=== PATIENT | male | born 1980 | race Caucasian/White ===

== ENCOUNTER 2023-12-12 14:27 | Inpatient (IN) | payer OTHER, SELFPAY ==
[2023-12-12 14:36] VITALS: BP 128/76; PULSE 76; O2SAT 100
[2023-12-12 14:41] VITALS: BP 128/78; PULSE 72; RESP 16; TEMP 36.6; O2SAT 100; BMI 31.6
[2023-12-12 14:55] LABS: Add Manual Diff / Slide Review NO; Basophils Absolute Auto 0 /uL (0-100); Basophils Percent Auto 0.4 % (0-2); Eosinophils Absolute Auto 0 /uL (0-450); Eosinophils Percent Auto 0.1 % (2-4); Hematocrit 40.7 % (41-53); Hemoglobin 14.3 g/dL (13.5-17.5); Lymphocytes Absolute Auto 1300 /uL (1100-4500); Lymphocytes Percent Auto 13.7 % (25-40); Mean Corpuscular HGB Conc 35.2 % (30-36); Mean Corpuscular Hemoglobin 30.9 PG (26-34); Mean Corpuscular Volume 87.7 fL (80-100); Monocytes Absolute Auto 600 /uL (0-900); Neutrophils Absolute Auto 7400 /uL (1500-7000); Neutrophils Percent Auto 79.8 % (50-75); Platelet Count 290 X10^3/uL (150-400); Red Blood Cell Count 4.64 X10^6/uL (4.5-5.9); Red Cell Distribution Width 13.3 % (11.6-14.8); White Blood Cell Count 9.2 X10^3/uL (4.5-11.0)
--- NOTE | 2023-12-12 14:57 | ED.ABDPAIN ---
HPI - Abdominal Pain <Eddie Loyola PA-C - Last Filed: 12/14/23 15:25> General Chief Complaint: Abdominal Pain Stated Complaint: Gallbladder sent from [facility] Time Seen by Provider: 12/12/23 14:41 History of Present Illness HPI narrative: This is a 43-year-old male presents emergency department due to intermittent epigastric pain for the last week and a half. States it is a 9/10. Had 1st episode about a week and a half ago which improved on its own. He was another episode today causing him to go to urgent care where they did EKG but told him to come to the emergency department to rule out any gallbladder issues. States that at 910 somewhat sharp pain. History of appendectomy. Eating does not worsen or improve the pain. Does not smoke. No extensive ibuprofen use. Denies any blood in the stool or any changes in bowel habits. Has some nausea but denies any vomiting. Related Data Previous Rx's Medication Instructions Recorded acetaminophen 325 mg capsule 650 mg (2 x 325 mg) PO QID PRN 12/15/23 (Tylenol) pain #60 caps ibuprofen 200 mg tablet 400 mg (2 x 200 mg) PO Q6H #60 tabs 12/15/23 levofloxacin 500 mg tablet 500 mg PO DAILY #5 tabs 12/15/23 Allergies Allergy/AdvReac Type Severity Reaction Status Date / Time No Known Drug Allergies Allergy Verified 12/12/23 18:01 Review of Systems <Eddie Loyola PA-C - Last Filed: 12/14/23 15:25> Review of Systems Narrative: GENERAL: Denies chills, fatigue, malaise, fever, sweats. HEENT: Denies sinus pain, ear pain, sore throat, difficulty swallowing, dizziness. RESPIRATORY: Denies dyspnea, cough, wheezing, hemoptysis, sputum. CARDIOVASCULAR: Denies chest pain, palpitations, orthopnea, edema, GASTROINTESTINAL: Reports abdominal pain and nausea , denies vomiting, , diarrhea, constipation, melena. : Denies dysuria, frequency, incontinence, hematuria, urinary retention. MUSCULOSKELETAL: denies weakness, joint pain, or bony pain SKIN: Denies rash, skin lesions, or other NEUROLOGIC: Denies weakness, headache, numbness, change in speech, confusion, seizures, incoordination. PSYCHIATRIC: No concerning psychosocial issues. 12 point review of systems is negative except for those stated above Patient History <Eddie Loyola PA-C - Last Filed: 12/14/23 15:25> Social History household members: spouse, family and children Smoking Status: Never smoker alcohol intake: never Exam <Eddie Loyola PA-C - Last Filed: 12/14/23 15:25> Narrative Exam Narrative: GENERAL: Well-developed patient, in mild distress. HEAD: Atraumatic. Normocephalic. EYES: Pupils equal round and reactive. Extraocular motions intact. No scleral icterus. No injection or drainage. ENT: Nose without bleeding, purulent drainage. Throat without erythema, tonsillar hypertrophy or exudate. Airway patent. NECK: Trachea midline. Non tender EXTREMITIES: No edema or joint tenderness. NEURO: AOx3. SKIN: No rash or erythema of visible areas GASTROINTESTINAL: Some guarding noted. Tenderness to palpation to epigastric and RUQ area. Nondistended. BACK: Nontender without deformity or crepitance. No flank tenderness. Initial Vital Signs Initial Vital Signs: Vital Signs Pulse Rate 76 12/12/23 14:36 Blood Pressure 128/76 12/12/23 14:36 Pulse Oximetry 100 12/12/23 14:36 <Brooke Orantes DO - Last Filed: 12/15/23 09:53> Initial Vital Signs Initial Vital Signs: Vital Signs Pulse Rate 76 12/12/23 14:36 Blood Pressure 128/76 12/12/23 14:36 Pulse Oximetry 100 12/12/23 14:36 <Viky Tong MD - Last Filed: 12/13/23 03:04> Initial Vital Signs Initial Vital Signs: Vital Signs Pulse Rate 76 12/12/23 14:36 Blood Pressure 128/76 12/12/23 14:36 Pulse Oximetry 100 12/12/23 14:36 Course <Eddie Loyola PA-C - Last Filed: 12/14/23 15:25> Orders Ordered: ED Orders 12/15/23 04:40 Complete Blood Count AUTO DIFF DAILY Comprehensive Metabolic Panel DAILY 12/16/23 05:00 Complete Blood Count AUTO DIFF DAILY 12/16/23 06:00 Comprehensive Metabolic Panel DAILY Acetaminophen (Acetaminophen 325 Mg Tablet) 650 mg PO Q6H PRN PRN Reason: Fever/Mild Pain (1-3) Last Admin: 12/14/23 00:36 Dose: 650 mg Documented By: Enoxaparin Sodium (Enoxaparin 40 Mg/0.4 Ml Syringe) 40 mg SUBCUT DAILY [facility] Last Admin: 12/15/23 08:15 Dose: Not Given Documented By: Admin: 12/14/23 08:35 Dose: 40 mg Documented By: IVAN Hydromorphone HCl (Hydromorphone 0.5 Mg Inj) 0.5 mg IV Q2H PRN PRN Reason: Pain, Severe (7-10) Last Admin: 12/13/23 02:19 Dose: 0.5 mg Documented By: KAREN Hydromorphone HCl (Hydromorphone 0.5 Mg Inj) 0.5 mg IV Q2H PRN PRN Reason: Pain, Severe (7-10) Sodium Chloride (Normal Saline 0.9%) 1,000 mls @ 125 mls/hr IV CONT [facility] Last Infusion: 12/14/23 08:10 Dose: Infused Documented By: Admin: 12/14/23 00:09 Dose: 125 mls/hr Documented By: Infusion: 12/13/23 23:46 Dose: Infused Documented By: Admin: 12/13/23 15:46 Dose: 125 mls/hr Documented By: Infusion: 12/13/23 15:19 Dose: Infused Documented By: Infusion: 12/13/23 11:45 Dose: 125 mls/hr Documented By: Infusion: 12/13/23 08:51 Dose: 0 mls/hr Documented By: Admin: 12/13/23 04:25 Dose: 125 mls/hr Documented By: Infusion: 12/13/23 04:25 Dose: Infused Documented By: Admin: 12/12/23 20:30 Dose: 125 mls/hr Documented By: [facility] Piperacillin Sod/Tazobactam (Sod 3.375 gm/ Sodium Chloride) 100 mls @ 25 mls/hr IV Q8H [facility] Last Infusion: 12/15/23 08:15 Dose: Infused Documented By: Admin: 12/15/23 03:34 Dose: 25 mls/hr Documented By: Infusion: 12/15/23 00:07 Dose: Infused Documented By: Admin: 12/14/23 20:07 Dose: 25 mls/hr Documented By: Infusion: 12/14/23 16:30 Dose: Infused Documented By: Admin: 12/14/23 12:00 Dose: 25 mls/hr Documented By: Infusion: 12/14/23 07:30 Dose: Infused Documented By: Admin: 12/14/23 03:16 Dose: 25 mls/hr Documented By: Infusion: 12/13/23 23:37 Dose: Infused Documented By: Admin: 12/13/23 19:37 Dose: 25 mls/hr Documented By: Infusion: 12/13/23 15:45 Dose: Infused Documented By: Admin: 12/13/23 11:45 Dose: 25 mls/hr Documented By: Infusion: 12/13/23 08:50 Dose: Infused Documented By: Admin: 12/13/23 03:33 Dose: 25 mls/hr Documented By: Infusion: 12/12/23 23:25 Dose: Infused Documented By: Admin: 12/12/23 19:44 Dose: 25 mls/hr Documented By: DARWIN Ibuprofen (Ibuprofen 600 Mg Tablet) 600 mg PO Q6H PRN PRN Reason: Fever/Mild Pain (1-3) Naloxone HCl (Naloxone 0.4 Mg/Ml Vial) 0.2 mg IV Q2MIN PRN PRN Reason: Opiate Reversal Ondansetron HCl (Ondansetron 4 Mg/2 Ml Inj) 4 mg IV Q4HR PRN PRN Reason: Nausea And Vomiting Last Admin: 12/13/23 02:19 Dose: 4 mg Documented By: KAREN Oxycodone HCl (Oxycodone Ir 5 Mg Tablet) 5 mg PO Q3H PRN PRN Reason: Pain, Moderate (4-6) Oxycodone HCl (Oxycodone Ir 10 Mg Tablet) 10 mg PO Q3H PRN PRN Reason: Pain, Severe (7-10) Discontinued Medications Bupivacaine HCl (Bupivacaine 0.25% (Pf) Vial) 30 ml INJ NOW ONE Stop: 12/13/23 09:41 Last Admin: 12/13/23 09:40 Dose: 30 ml Documented By: BRIT Hydromorphone HCl (Hydromorphone 1 Mg Inj) 0 mg IV Q5MIN PRN PRN Reason: Pain, Mild (1-3) Hydromorphone HCl (Hydromorphone 1 Mg Inj) 0 mg IV Q5MIN PRN PRN Reason: Pain, Moderate (4-6) Hydromorphone HCl (Hydromorphone 1 Mg Inj) 0 mg IV Q5MIN PRN PRN Reason: Pain, Severe (7-10) Piperacillin Sod/Tazobactam (Sod 4.5 gm/ Sodium Chloride) 100 mls @ 200 mls/hr IV NOW ONE Stop: 12/12/23 16:50 Last Infusion: 12/12/23 18:02 Dose: Infused Documented By: MLKevin Admin: 12/12/23 17:36 Dose: 200 mls/hr Documented By: BLESSING Lactated Ringer's (Lactated Ringers) 1,000 mls @ 42 mls/hr IV NOW ONE Stop: 12/14/23 08:58 Last Admin: 12/13/23 11:12 Dose: 42 mls/hr Documented By: Infusion: 12/13/23 11:11 Dose: Infused Documented By: Admin: 12/13/23 09:13 Dose: 42 mls/hr Documented By: JASON Ketorolac Tromethamine (Ketorolac 30 Mg/Ml Vial) 15 mg IV NOW ONE Stop: 12/12/23 17:29 Last Admin: 12/12/23 17:35 Dose: 15 mg Documented By: BLESSING Ondansetron HCl (Ondansetron 4 Mg/2 Ml Inj) 4 mg IV NOW PRN PRN Reason: Nausea And Vomiting Last Admin: 12/12/23 17:35 Dose: 4 mg Documented By: BLESSING Ondansetron HCl (Ondansetron 4 Mg/2 Ml Inj) 4 mg IV NOW PRN PRN Reason: Nausea And Vomiting Oxycodone HCl (Oxycodone Ir 5 Mg Tablet) 5 mg PO PACUNOW PRN PRN Reason: Mild or moderate pain Sodium Chloride (Sodium Chloride 0.9% Flush) 10 ml IV PRN PRN PRN Reason: Flush Last Admin: 12/13/23 02:19 Dose: 10 ml Documented By: [facility] Consultations Consultation #1: [id number]: Discussed case with the polytechnic registrar who reported a sludge filled gallbladder with a thickened wall at 4 mm. Common bile duct is 5.4 mm. Formal report pending. Consultation #2: [id number]: Discussed case with Dr. Constantino, general surgeon, who recommended MRCP for further evaluation to determine need for transfer for possible ERCP. Vital Signs Vital signs: Vital Signs - 8 hr 12/12/23 14:36 12/12/23 14:36 12/12/23 14:41 Temperature 97.8 F Pulse Rate 76 72 Respiratory Rate 16 Blood Pressure 128/76 128/78 Pulse Oximetry 100 100 Oxygen Delivery Method Room Air 12/12/23 18:44 Temperature Pulse Rate 85 Respiratory Rate Blood Pressure 119/72 Pulse Oximetry 97 Oxygen Delivery Method Room Air <Brooke Orantes DO - Last Filed: 12/15/23 09:53> Orders Ordered: ED Orders 12/15/23 04:40 Complete Blood Count AUTO DIFF DAILY Comprehensive Metabolic Panel DAILY 12/16/23 05:00 Complete Blood Count AUTO DIFF DAILY 12/16/23 06:00 Comprehensive Metabolic Panel DAILY Acetaminophen (Acetaminophen 325 Mg Tablet) 650 mg PO Q6H PRN PRN Reason: Fever/Mild Pain (1-3) Last Admin: 12/14/23 00:36 Dose: 650 mg Documented By: Enoxaparin Sodium (Enoxaparin 40 Mg/0.4 Ml Syringe) 40 mg SUBCUT DAILY [facility] Last Admin: 12/15/23 08:15 Dose: Not Given Documented By: Admin: 12/14/23 08:35 Dose: 40 mg Documented By: IVAN Hydromorphone HCl (Hydromorphone 0.5 Mg Inj) 0.5 mg IV Q2H PRN PRN Reason: Pain, Severe (7-10) Last Admin: 12/13/23 02:19 Dose: 0.5 mg Documented By: KAREN Hydromorphone HCl (Hydromorphone 0.5 Mg Inj) 0.5 mg IV Q2H PRN PRN Reason: Pain, Severe (7-10) Sodium Chloride (Normal Saline 0.9%) 1,000 mls @ 125 mls/hr IV CONT [facility] Last Infusion: 12/14/23 08:10 Dose: Infused Documented By: Admin: 12/14/23 00:09 Dose: 125 mls/hr Documented By: Infusion: 12/13/23 23:46 Dose: Infused Documented By: Admin: 12/13/23 15:46 Dose: 125 mls/hr Documented By: Infusion: 12/13/23 15:19 Dose: Infused Documented By: Infusion: 12/13/23 11:45 Dose: 125 mls/hr Documented By: Infusion: 12/13/23 08:51 Dose: 0 mls/hr Documented By: Admin: 12/13/23 04:25 Dose: 125 mls/hr Documented By: Infusion: 12/13/23 04:25 Dose: Infused Documented By: Admin: 12/12/23 20:30 Dose: 125 mls/hr Documented By: KAREN Piperacillin Sod/Tazobactam (Sod 3.375 gm/ Sodium Chloride) 100 mls @ 25 mls/hr IV Q8H [facility] Last Infusion: 12/15/23 08:15 Dose: Infused Documented By: Admin: 12/15/23 03:34 Dose: 25 mls/hr Documented By: Infusion: 12/15/23 00:07 Dose: Infused Documented By: Admin: 12/14/23 20:07 Dose: 25 mls/hr Documented By: Infusion: 12/14/23 16:30 Dose: Infused Documented By: Admin: 12/14/23 12:00 Dose: 25 mls/hr Documented By: Infusion: 12/14/23 07:30 Dose: Infused Documented By: Admin: 12/14/23 03:16 Dose: 25 mls/hr Documented By: Infusion: 12/13/23 23:37 Dose: Infused Documented By: Admin: 12/13/23 19:37 Dose: 25 mls/hr Documented By: Infusion: 12/13/23 15:45 Dose: Infused Documented By: Admin: 12/13/23 11:45 Dose: 25 mls/hr Documented By: Infusion: 12/13/23 08:50 Dose: Infused Documented By: Admin: 12/13/23 03:33 Dose: 25 mls/hr Documented By: Infusion: 12/12/23 23:25 Dose: Infused Documented By: Admin: 12/12/23 19:44 Dose: 25 mls/hr Documented By: DARWIN Ibuprofen (Ibuprofen 600 Mg Tablet) 600 mg PO Q6H PRN PRN Reason: Fever/Mild Pain (1-3) Naloxone HCl (Naloxone 0.4 Mg/Ml Vial) 0.2 mg IV Q2MIN PRN PRN Reason: Opiate Reversal Ondansetron HCl (Ondansetron 4 Mg/2 Ml Inj) 4 mg IV Q4HR PRN PRN Reason: Nausea And Vomiting Last Admin: 12/13/23 02:19 Dose: 4 mg Documented By: KAREN Oxycodone HCl (Oxycodone Ir 5 Mg Tablet) 5 mg PO Q3H PRN PRN Reason: Pain, Moderate (4-6) Oxycodone HCl (Oxycodone Ir 10 Mg Tablet) 10 mg PO Q3H PRN PRN Reason: Pain, Severe (7-10) Discontinued Medications Bupivacaine HCl (Bupivacaine 0.25% (Pf) Vial) 30 ml INJ NOW ONE Stop: 12/13/23 09:41 Last Admin: 12/13/23 09:40 Dose: 30 ml Documented By: BRIT Hydromorphone HCl (Hydromorphone 1 Mg Inj) 0 mg IV Q5MIN PRN PRN Reason: Pain, Mild (1-3) Hydromorphone HCl (Hydromorphone 1 Mg Inj) 0 mg IV Q5MIN PRN PRN Reason: Pain, Moderate (4-6) Hydromorphone HCl (Hydromorphone 1 Mg Inj) 0 mg IV Q5MIN PRN PRN Reason: Pain, Severe (7-10) Piperacillin Sod/Tazobactam (Sod 4.5 gm/ Sodium Chloride) 100 mls @ 200 mls/hr IV NOW ONE Stop: 12/12/23 16:50 Last Infusion: 12/12/23 18:02 Dose: Infused Documented By: Admin: 12/12/23 17:36 Dose: 200 mls/hr Documented By: BLESSING Lactated Ringer's (Lactated Ringers) 1,000 mls @ 42 mls/hr IV NOW ONE Stop: 12/14/23 08:58 Last Admin: 12/13/23 11:12 Dose: 42 mls/hr Documented By: Infusion: 12/13/23 11:11 Dose: Infused Documented By: Admin: 12/13/23 09:13 Dose: 42 mls/hr Documented By: JASON Ketorolac Tromethamine (Ketorolac 30 Mg/Ml Vial) 15 mg IV NOW ONE Stop: 12/12/23 17:29 Last Admin: 12/12/23 17:35 Dose: 15 mg Documented By: BLESSING Ondansetron HCl (Ondansetron 4 Mg/2 Ml Inj) 4 mg IV NOW PRN PRN Reason: Nausea And Vomiting Last Admin: 12/12/23 17:35 Dose: 4 mg Documented By: BLESSING Ondansetron HCl (Ondansetron 4 Mg/2 Ml Inj) 4 mg IV NOW PRN PRN Reason: Nausea And Vomiting Oxycodone HCl (Oxycodone Ir 5 Mg Tablet) 5 mg PO PACUNOW PRN PRN Reason: Mild or moderate pain Sodium Chloride (Sodium Chloride 0.9% Flush) 10 ml IV PRN PRN PRN Reason: Flush Last Admin: 12/13/23 02:19 Dose: 10 ml Documented By: KAREN Vital Signs Vital signs: Vital Signs - 8 hr 12/12/23 14:36 12/12/23 14:36 12/12/23 14:41 Temperature 97.8 F Pulse Rate 76 72 Respiratory Rate 16 Blood Pressure 128/76 128/78 Pulse Oximetry 100 100 Oxygen Delivery Method Room Air 12/12/23 18:44 Temperature Pulse Rate 85 Respiratory Rate Blood Pressure 119/72 Pulse Oximetry 97 Oxygen Delivery Method Room Air <Viky Tong MD - Last Filed: 12/13/23 03:04> Orders Ordered: ED Orders 12/15/23 04:40 Complete Blood Count AUTO DIFF DAILY Comprehensive Metabolic Panel DAILY 12/16/23 05:00 Complete Blood Count AUTO DIFF DAILY 12/16/23 06:00 Comprehensive Metabolic Panel DAILY Acetaminophen (Acetaminophen 325 Mg Tablet) 650 mg PO Q6H PRN PRN Reason: Fever/Mild Pain (1-3) Last Admin: 12/14/23 00:36 Dose: 650 mg Documented By: Enoxaparin Sodium (Enoxaparin 40 Mg/0.4 Ml Syringe) 40 mg SUBCUT DAILY [facility] Last Admin: 12/15/23 08:15 Dose: Not Given Documented By: Admin: 12/14/23 08:35 Dose: 40 mg Documented By: IVAN Hydromorphone HCl (Hydromorphone 0.5 Mg Inj) 0.5 mg IV Q2H PRN PRN Reason: Pain, Severe (7-10) Last Admin: 12/13/23 02:19 Dose: 0.5 mg Documented By: KAREN Hydromorphone HCl (Hydromorphone 0.5 Mg Inj) 0.5 mg IV Q2H PRN PRN Reason: Pain, Severe (7-10) Sodium Chloride (Normal Saline 0.9%) 1,000 mls @ 125 mls/hr IV CONT [facility] Last Infusion: 12/14/23 08:10 Dose: Infused Documented By: Admin: 12/14/23 00:09 Dose: 125 mls/hr Documented By: Infusion: 12/13/23 23:46 Dose: Infused Documented By: Admin: 12/13/23 15:46 Dose: 125 mls/hr Documented By: Infusion: 12/13/23 15:19 Dose: Infused Documented By: Infusion: 12/13/23 11:45 Dose: 125 mls/hr Documented By: Infusion: 12/13/23 08:51 Dose: 0 mls/hr Documented By: Admin: 12/13/23 04:25 Dose: 125 mls/hr Documented By: Infusion: 12/13/23 04:25 Dose: Infused Documented By: Admin: 12/12/23 20:30 Dose: 125 mls/hr Documented By: KAREN Piperacillin Sod/Tazobactam (Sod 3.375 gm/ Sodium Chloride) 100 mls @ 25 mls/hr IV Q8H [facility] Last Infusion: 12/15/23 08:15 Dose: Infused Documented By: Admin: 12/15/23 03:34 Dose: 25 mls/hr Documented By: Infusion: 12/15/23 00:07 Dose: Infused Documented By: Admin: 12/14/23 20:07 Dose: 25 mls/hr Documented By: Infusion: 12/14/23 16:30 Dose: Infused Documented By: Admin: 12/14/23 12:00 Dose: 25 mls/hr Documented By: Infusion: 12/14/23 07:30 Dose: Infused Documented By: Admin: 12/14/23 03:16 Dose: 25 mls/hr Documented By: Infusion: 12/13/23 23:37 Dose: Infused Documented By: Admin: 12/13/23 19:37 Dose: 25 mls/hr Documented By: Infusion: 12/13/23 15:45 Dose: Infused Documented By: Admin: 12/13/23 11:45 Dose: 25 mls/hr Documented By: Infusion: 12/13/23 08:50 Dose: Infused Documented By: Admin: 12/13/23 03:33 Dose: 25 mls/hr Documented By: Infusion: 12/12/23 23:25 Dose: Infused Documented By: Admin: 12/12/23 19:44 Dose: 25 mls/hr Documented By: DARWIN Ibuprofen (Ibuprofen 600 Mg Tablet) 600 mg PO Q6H PRN PRN Reason: Fever/Mild Pain (1-3) Naloxone HCl (Naloxone 0.4 Mg/Ml Vial) 0.2 mg IV Q2MIN PRN PRN Reason: Opiate Reversal Ondansetron HCl (Ondansetron 4 Mg/2 Ml Inj) 4 mg IV Q4HR PRN PRN Reason: Nausea And Vomiting Last Admin: 12/13/23 02:19 Dose: 4 mg Documented By: KAREN Oxycodone HCl (Oxycodone Ir 5 Mg Tablet) 5 mg PO Q3H PRN PRN Reason: Pain, Moderate (4-6) Oxycodone HCl (Oxycodone Ir 10 Mg Tablet) 10 mg PO Q3H PRN PRN Reason: Pain, Severe (7-10) Discontinued Medications Bupivacaine HCl (Bupivacaine 0.25% (Pf) Vial) 30 ml INJ NOW ONE Stop: 12/13/23 09:41 Last Admin: 12/13/23 09:40 Dose: 30 ml Documented By: BRIT Hydromorphone HCl (Hydromorphone 1 Mg Inj) 0 mg IV Q5MIN PRN PRN Reason: Pain, Mild (1-3) Hydromorphone HCl (Hydromorphone 1 Mg Inj) 0 mg IV Q5MIN PRN PRN Reason: Pain, Moderate (4-6) Hydromorphone HCl (Hydromorphone 1 Mg Inj) 0 mg IV Q5MIN PRN PRN Reason: Pain, Severe (7-10) Piperacillin Sod/Tazobactam (Sod 4.5 gm/ Sodium Chloride) 100 mls @ 200 mls/hr IV NOW ONE Stop: 12/12/23 16:50 Last Infusion: 12/12/23 18:02 Dose: Infused Documented By: Admin: 12/12/23 17:36 Dose: 200 mls/hr Documented By: BLESSING Lactated Ringer's (Lactated Ringers) 1,000 mls @ 42 mls/hr IV NOW ONE Stop: 12/14/23 08:58 Last Admin: 12/13/23 11:12 Dose: 42 mls/hr Documented By: Infusion: 12/13/23 11:11 Dose: Infused Documented By: Admin: 12/13/23 09:13 Dose: 42 mls/hr Documented By: JASON Ketorolac Tromethamine (Ketorolac 30 Mg/Ml Vial) 15 mg IV NOW ONE Stop: 12/12/23 17:29 Last Admin: 12/12/23 17:35 Dose: 15 mg Documented By: BLESSING Ondansetron HCl (Ondansetron 4 Mg/2 Ml Inj) 4 mg IV NOW PRN PRN Reason: Nausea And Vomiting Last Admin: 12/12/23 17:35 Dose: 4 mg Documented By: BLESSING Ondansetron HCl (Ondansetron 4 Mg/2 Ml Inj) 4 mg IV NOW PRN PRN Reason: Nausea And Vomiting Oxycodone HCl (Oxycodone Ir 5 Mg Tablet) 5 mg PO PACUNOW PRN PRN Reason: Mild or moderate pain Sodium Chloride (Sodium Chloride 0.9% Flush) 10 ml IV PRN PRN PRN Reason: Flush Last Admin: 12/13/23 02:19 Dose: 10 ml Documented By: KAREN Vital Signs Vital signs: Vital Signs - 8 hr 12/12/23 14:36 12/12/23 14:36 12/12/23 14:41 Temperature 97.8 F Pulse Rate 76 72 Respiratory Rate 16 Blood Pressure 128/76 128/78 Pulse Oximetry 100 100 Oxygen Delivery Method Room Air 12/12/23 18:44 Temperature Pulse Rate 85 Respiratory Rate Blood Pressure 119/72 Pulse Oximetry 97 Oxygen Delivery Method Room Air MDM - Abdominal Pain <Eddie Loyola PA-C - Last Filed: 12/14/23 15:25> Lab Data 12/15/23 04:40 12/15/23 04:40 Labs: Lab Results 12/12/23 12/12/23 12/13/23 Range/Units 14:45 15:53 05:05 WBC 9.2 8.2 (4.5-11.0) X10^3/uL RBC 4.64 4.51 (4.5-5.9) X10^6/uL Hgb 14.3 13.8 (13.5-17.5) g/dL Hct 40.7 L 39.4 L (41-53) % MCV 87.7 87.3 (80-100) fL MCH 30.9 30.5 (26-34) PG MCHC 35.2 35.0 (30-36) % RDW 13.3 13.4 (11.6-14.8) % Plt Count 290 267 (150-400) X10^3/uL Neut % (Auto) 79.8 H 75.4 H (50-75) % Lymph % (Auto) 13.7 L 17.3 L (25-40) % [place] % (Auto) 6.0 6.5 (3-14) % Eos % (Auto) 0.1 L 0.4 L (2-4) % Baso % (Auto) 0.4 0.4 (0-2) % Neut # (Auto) 7400 H 6200 (1380-6434) /uL Lymph # (Auto) 1300 1400 (3653-4919) /uL [place] # (Auto) 600 500 (0-900) /uL Eos # (Auto) 0 0 (0-450) /uL Baso # (Auto) 0 0 (0-100) /uL Sodium 138 139 (137-145) mmol/L Potassium 4.4 4.0 (3.4-5.1) mmol/L Chloride 105 108 H (98-107) mmol/L Carbon Dioxide 27 26 (22-32) mmol/L BUN 11 11 (9-20) mg/dL Creatinine 0.80 0.89 (0.66-1.25) mg/dL Estimated GFR > 60 > 60 (>60) mL/min BUN/Creatinine Ratio 13.8 12.4 (6-22) Glucose 126 H 120 H (70-100) mg/dL Calcium 9.2 8.7 (8.4-10.2) mg/dL Total Bilirubin 2.8 H 4.6 H (0.2-1.3) mg/dL AST 299 H 342 H (17-59) IU/L ALT 302 H 415 H (<50) IU/L Alkaline Phosphatase 170 H 185 H (38-126) U/L Total Protein 8.0 7.1 (6.3-8.2) g/dL Albumin 4.2 3.7 (3.5-5.0) g/dL Globulin 3.8 3.4 (1.7-4.1) g/dL Albumin/Globulin Ratio 1.1 1.1 (1.0-2.8) Lipase 68 (23-300) U/L Urine RBC None seen (0-5/HPF) Urine WBC 0-1/hpf (0-5/HPF) Ur Squamous Epith Cells None seen (0-5/HPF) Amorphous Sediment 2+ Urine Bacteria Occasional (0-1) (None) Urine Mucus 2+ H (Negative) Ur Culture Indicated? Specimen cultured Vol Urine Centrifuged 10ml (spun) Point of care testing: Urine Dip Bedside Urine Glucose Negative Bedside Urine Bilirubin - Negative Bedside Urine Ketone - Negative Urine Specific [place] 1.015 Bedside Urine Occult Blood - Negative Bedside Urine pH 7.5 Bedside Urine Protein +/- 15 Bedside Urine Urobilinogen - Negative Bedside Urine Nitrite - Negative Bedside Urine Leukocytes +/- 15 Esterase MDM Narrative Medical decision making narrative: ED course: This is a 43-year-old male presents to the emergency department due to a week and a half of intermittent epigastric and right upper quadrant abdominal pain. Ultrasound ordered which showed a sludge filled gallbladder with thickened caballero at 4 mm. These findings were discussed with Dr. Constantino of General surgery, who recommended a MRCP for further evaluation. Lab work was notable for Total bili of 2.8, AST of 299, ALT of 302, alk phos of 170. No leukocytosis. Zosyn was ordered and given. NPO since 08:30 last night. Patient was transferred to my attending physician, Dr. Orantes, at end of shift. CC: Epigastric abdominal pain Complicating co-morbidities: History of appendectomy Data collected from: Previous notes Medical records reviewed: Patient has not been to this emergency department the past Differential considered, but not limited to: Acute pancreatitis, cholecystitis, choledocholithiasis, cholangitis, gastroenteritis Exam documented above, pertinent findings include: Tenderness to palpation to the epigastric area as well as right upper quadrant Lab Test results independently reviewed as above. Pertinent findings: As above Imaging studies independently reviewed: Formal ultrasound report pending. MRCP pending. Scores Used: None MIPS Elements: None Consultations: Dr. Constantino of General surgery as noted above Treatments: IV Zosyn Re-evaluations: None Discussion: Discussed plan with the patient was comfortable with the plan Diagnosis: To be determined based on completion of workup Disposition: To be determined based on completion of workup <Brooke Orantes DO - Last Filed: 12/15/23 09:53> Lab Data Labs: Lab Results 12/12/23 12/12/23 12/13/23 Range/Units 14:45 15:53 05:05 WBC 9.2 8.2 (4.5-11.0) X10^3/uL RBC 4.64 4.51 (4.5-5.9) X10^6/uL Hgb 14.3 13.8 (13.5-17.5) g/dL Hct 40.7 L 39.4 L (41-53) % MCV 87.7 87.3 (80-100) fL MCH 30.9 30.5 (26-34) PG MCHC 35.2 35.0 (30-36) % RDW 13.3 13.4 (11.6-14.8) % Plt Count 290 267 (150-400) X10^3/uL Neut % (Auto) 79.8 H 75.4 H (50-75) % Lymph % (Auto) 13.7 L 17.3 L (25-40) % [place] % (Auto) 6.0 6.5 (3-14) % Eos % (Auto) 0.1 L 0.4 L (2-4) % Baso % (Auto) 0.4 0.4 (0-2) % Neut # (Auto) 7400 H 6200 (0845-8358) /uL Lymph # (Auto) 1300 1400 (0291-1264) /uL [place] # (Auto) 600 500 (0-900) /uL Eos # (Auto) 0 0 (0-450) /uL Baso # (Auto) 0 0 (0-100) /uL Sodium 138 139 (137-145) mmol/L Potassium 4.4 4.0 (3.4-5.1) mmol/L Chloride 105 108 H (98-107) mmol/L Carbon Dioxide 27 26 (22-32) mmol/L BUN 11 11 (9-20) mg/dL Creatinine 0.80 0.89 (0.66-1.25) mg/dL Estimated GFR > 60 > 60 (>60) mL/min BUN/Creatinine Ratio 13.8 12.4 (6-22) Glucose 126 H 120 H (70-100) mg/dL Calcium 9.2 8.7 (8.4-10.2) mg/dL Total Bilirubin 2.8 H 4.6 H (0.2-1.3) mg/dL AST 299 H 342 H (17-59) IU/L ALT 302 H 415 H (<50) IU/L Alkaline Phosphatase 170 H 185 H (38-126) U/L Total Protein 8.0 7.1 (6.3-8.2) g/dL Albumin 4.2 3.7 (3.5-5.0) g/dL Globulin 3.8 3.4 (1.7-4.1) g/dL Albumin/Globulin Ratio 1.1 1.1 (1.0-2.8) Lipase 68 (23-300) U/L Urine RBC None seen (0-5/HPF) Urine WBC 0-1/hpf (0-5/HPF) Ur Squamous Epith Cells None seen (0-5/HPF) Amorphous Sediment 2+ Urine Bacteria Occasional (0-1) (None) Urine Mucus 2+ H (Negative) Ur Culture Indicated? Specimen cultured Vol Urine Centrifuged 10ml (spun) Point of care testing: Urine Dip Bedside Urine Glucose Negative Bedside Urine Bilirubin - Negative Bedside Urine Ketone - Negative Urine Specific [place] 1.015 Bedside Urine Occult Blood - Negative Bedside Urine pH 7.5 Bedside Urine Protein +/- 15 Bedside Urine Urobilinogen - Negative Bedside Urine Nitrite - Negative Bedside Urine Leukocytes +/- 15 Esterase MDM Narrative Medical decision making narrative: ED course: This is a 43-year-old male presents to the emergency department due to a week and a half of intermittent epigastric and right upper quadrant abdominal pain. Ultrasound ordered which showed a sludge filled gallbladder with thickened caballero at 4 mm. These findings were discussed with Dr. Constantino of General surgery, who recommended a MRCP for further evaluation. Lab work was notable for Total bili of 2.8, AST of 299, ALT of 302, alk phos of 170. No leukocytosis. Zosyn was ordered and given. NPO since 08:30 last night. Patient was transferred to my attending physician, Dr. Orantes, at end of shift. CC: Epigastric abdominal pain Complicating co-morbidities: History of appendectomy Data collected from: Previous notes Medical records reviewed: Patient has not been to this emergency department the past Differential considered, but not limited to: Acute pancreatitis, cholecystitis, choledocholithiasis, cholangitis, gastroenteritis Exam documented above, pertinent findings include: Tenderness to palpation to the epigastric area as well as right upper quadrant Lab Test results independently reviewed as above. Pertinent findings: As above Imaging studies independently reviewed: Formal ultrasound report pending. MRCP pending. Scores Used: None MIPS Elements: None Consultations: Dr. Constantino of General surgery as noted above Treatments: IV Zosyn Re-evaluations: None Discussion: Discussed plan with the patient was comfortable with the plan Diagnosis: To be determined based on completion of workup Disposition: To be determined based on completion of workup Dr. Orantes-patient seen evaluated by myself. He received Toradol for pain. He is mildly tenderness epigastric region. He has no fever or leukocytosis. Although concern for cholecystitis with gallbladder containing sludge and mild wall thickening with pericholecystic fluid. Awaiting MRCP per surgery. He does have elevated bilirubin 2.8 with AST 299 and ALT 3 O2 with alk-phos 170. Patient received Zosyn. Signed out to DR. Tong <Viky Tong MD - Last Filed: 12/13/23 03:04> Lab Data Labs: Lab Results 12/12/23 12/12/23 12/13/23 Range/Units 14:45 15:53 05:05 WBC 9.2 8.2 (4.5-11.0) X10^3/uL RBC 4.64 4.51 (4.5-5.9) X10^6/uL Hgb 14.3 13.8 (13.5-17.5) g/dL Hct 40.7 L 39.4 L (41-53) % MCV 87.7 87.3 (80-100) fL MCH 30.9 30.5 (26-34) PG MCHC 35.2 35.0 (30-36) % RDW 13.3 13.4 (11.6-14.8) % Plt Count 290 267 (150-400) X10^3/uL Neut % (Auto) 79.8 H 75.4 H (50-75) % Lymph % (Auto) 13.7 L 17.3 L (25-40) % [place] % (Auto) 6.0 6.5 (3-14) % Eos % (Auto) 0.1 L 0.4 L (2-4) % Baso % (Auto) 0.4 0.4 (0-2) % Neut # (Auto) 7400 H 6200 (0977-8174) /uL Lymph # (Auto) 1300 1400 (2702-5819) /uL [place] # (Auto) 600 500 (0-900) /uL Eos # (Auto) 0 0 (0-450) /uL Baso # (Auto) 0 0 (0-100) /uL Sodium 138 139 (137-145) mmol/L Potassium 4.4 4.0 (3.4-5.1) mmol/L Chloride 105 108 H (98-107) mmol/L Carbon Dioxide 27 26 (22-32) mmol/L BUN 11 11 (9-20) mg/dL Creatinine 0.80 0.89 (0.66-1.25) mg/dL Estimated GFR > 60 > 60 (>60) mL/min BUN/Creatinine Ratio 13.8 12.4 (6-22) Glucose 126 H 120 H (70-100) mg/dL Calcium 9.2 8.7 (8.4-10.2) mg/dL Total Bilirubin 2.8 H 4.6 H (0.2-1.3) mg/dL AST 299 H 342 H (17-59) IU/L ALT 302 H 415 H (<50) IU/L Alkaline Phosphatase 170 H 185 H (38-126) U/L Total Protein 8.0 7.1 (6.3-8.2) g/dL Albumin 4.2 3.7 (3.5-5.0) g/dL Globulin 3.8 3.4 (1.7-4.1) g/dL Albumin/Globulin Ratio 1.1 1.1 (1.0-2.8) Lipase 68 (23-300) U/L Urine RBC None seen (0-5/HPF) Urine WBC 0-1/hpf (0-5/HPF) Ur Squamous Epith Cells None seen (0-5/HPF) Amorphous Sediment 2+ Urine Bacteria Occasional (0-1) (None) Urine Mucus 2+ H (Negative) Ur Culture Indicated? Specimen cultured Vol Urine Centrifuged 10ml (spun) Point of care testing: Urine Dip Bedside Urine Glucose Negative Bedside Urine Bilirubin - Negative Bedside Urine Ketone - Negative Urine Specific [place] 1.015 Bedside Urine Occult Blood - Negative Bedside Urine pH 7.5 Bedside Urine Protein +/- 15 Bedside Urine Urobilinogen - Negative Bedside Urine Nitrite - Negative Bedside Urine Leukocytes +/- 15 Esterase Imaging Data MRCP: Radiologist's Impression: PROCEDURE: MR ABDOMEN WO/W CON INDICATIONS: RUQ pain, sludge filled gall bladder TECHNIQUE: Coronal HASTE, axial 2D FLASH in- and [id number]; axial breath-hold T2 FSE with fat saturation from the hepatic dome to the iliac crests. Oblique coronal thin-slice and radial thick slab HASTE through the biliary system. Dynamic axial VIBE during administration of contrast. Post-contrast coronal VIBE or 2D FLASH with fat saturation from the hepatic dome to the iliac crests. Optional diffusion weighted imaging and ADC may be performed. COMPARISON: Abdominal ultrasound 12/12/2023. FINDINGS: Image quality: Diagnostic. Gallbladder: There is redemonstration of filling defects within the gallbladder consistent with sludge seen on same day prior ultrasound. There is gallbladder wall thickening and pericholecystic fluid. Biliary ducts: No biliary dilation. No filling defects within the common bile duct. Pancreas: No ductal dilation. OTHER: Lung bases: Unremarkable. Liver: No solid mass. Spleen: Size is within normal limits. Adrenal Glands: No adrenal nodules. Kidneys and Ureters: No hydronephrosis. No solid mass. No complex renal cystic lesion which requires follow up. Stomach and Bowel: Normal colonic caliber, without significant wall thickening. Peritoneum: No abnormal intraperitoneal fluid. No free air. Ventral Wall: No hernia. Abdominal Nodes: No retroperitoneal or mesenteric adenopathy by size criteria. Vessels: Aorta and inferior vena cava are normal in size. Bones: No aggressive osseous abnormality. IMPRESSION: Gallbladder filling defects consistent with sludge seen on same day abdominal ultrasound. Gallbladder wall thickening and pericholecystic fluid. Findings in the context of prior ultrasound likely reflect acute cholecystitis. No biliary ductal dilatation. No choledocholithiasis. Approved by: Ashley Veras M.D. on 12/12/2023 at 17:42 MDM Narrative Medical decision making narrative: ED course: This is a 43-year-old male presents to the emergency department due to a week and a half of intermittent epigastric and right upper quadrant abdominal pain. Ultrasound ordered which showed a sludge filled gallbladder with thickened caballero at 4 mm. These findings were discussed with Dr. Constantino of General surgery, who recommended a MRCP for further evaluation. Lab work was notable for Total bili of 2.8, AST of 299, ALT of 302, alk phos of 170. No leukocytosis. Zosyn was ordered and given. NPO since 08:30 last night. Patient was transferred to my attending physician, Dr. Orantes, at end of shift. CC: Epigastric abdominal pain Complicating co-morbidities: History of appendectomy Data collected from: Previous notes Medical records reviewed: Patient has not been to this emergency department the past Differential considered, but not limited to: Acute pancreatitis, cholecystitis, choledocholithiasis, cholangitis, gastroenteritis Exam documented above, pertinent findings include: Tenderness to palpation to the epigastric area as well as right upper quadrant Lab Test results independently reviewed as above. Pertinent findings: As above Imaging studies independently reviewed: Formal ultrasound report pending. MRCP pending. Scores Used: None MIPS Elements: None Consultations: Dr. Constantino of General surgery as noted above Treatments: IV Zosyn Re-evaluations: None Discussion: Discussed plan with the patient was comfortable with the plan Diagnosis: To be determined based on completion of workup Disposition: To be determined based on completion of workup Dr. Orantes-patient seen evaluated by myself. He received Toradol for pain. He is mildly tenderness epigastric region. He has no fever or leukocytosis. Although concern for cholecystitis with gallbladder containing sludge and mild wall thickening with pericholecystic fluid. Awaiting MRCP per surgery. He does have elevated bilirubin 2.8 with AST 299 and ALT 3 O2 with alk-phos 170. Patient received Zosyn. Signed out to DR. Tong [address] Dr Tong Care is assumed, patient is independently evaluated. He describes intermittent episodes of epigastric pain for the last week and a half severe this morning radiating through to his back now improving somewhat. White count is not significantly elevated however liver function studies are. MRCP consistent with acute cholecystitis without choledocholithiasis. I am wondering if he perhaps passed a kidney stone which caused the severe pain this morning in the absence of pain in the ducts or ductal dilatation at this point. Care is reviewed with Dr. Constantino. In light of the sludge the persistent pain that has been increasing in the continued pain and lack appetite will admit him to the hospital this evening with a diagnosis of acute cholecystitis with anticipation of cholecystectomy in the morning. Findings are reviewed with patient and his . Questions are answered he is amenable to plan. Transition orders were written. We will continue with Zosyn, NPO fluids, pain medication and repeat blood work in the morning. Discharge Plan Departure Patient Disposition: Admitted as Observation Clinical Impression: Acute cholecystitis Admit Date/Time: 12/13/23 12:04 Admit Provider: Lion Constantino
[2023-12-12 15:21] LABS: Alanine Aminotransferase 302 IU/L (<50); Albumin 4.2 g/dL (3.5-5.0); Albumin Globulin Ratio 1.1 (1.0-2.8); Alkaline Phosphatase 170 U/L (38-126); Aspartate Aminotransferase 299 IU/L (17-59); BUN Creatinine Ratio 13.8 (6-22); Bilirubin Total 2.8 mg/dL (0.2-1.3); Blood Urea Nitrogen 11 mg/dL (9-20); Calcium 9.2 mg/dL (8.4-10.2); Carbon Dioxide 27 mmol/L (22-32); Chloride 105 mmol/L (98-107); Estimated Glomerular Filt Rate > 60 mL/min (>60); Globulin 3.8 g/dL (1.7-4.1); Glucose 126 mg/dL (70-100); HEMOLYSIS < 15 (0-50); Lipase 68 U/L (23-300); Potassium 4.4 mmol/L (3.4-5.1); Sodium 138 mmol/L (137-145)
--- NOTE | 2023-12-12 15:31 | DI.US.S_ITS ---
PROCEDURE: US ABDOMEN LIMITED INDICATIONS: RUQ pain TECHNIQUE: Real-time scanning was performed of the abdominal and retroperitoneal organs, with image documentation. COMPARISON: None. FINDINGS: Liver: Liver is normal in size and homogeneous in echotexture. There is increased hepatic echogenicity likely reflecting hepatic steatosis. Main portal vein is patent with normal hepatopetal flow. Gallbladder: The gallbladder is distended containing sludge. No stones visualized. Gallbladder wall is mildly thickened measuring up to 3.9 mm. There is pericholecystic fluid. Sonographic Wharton sign is positive. Biliary ducts: Intrahepatic bile ducts are not well visualized. Extrahepatic bile duct caliber measures 5.4 mm. Normal is 6-7 mm or less in diameter, or 10 mm or less post-cholecystectomy. Pancreas: Not well visualized. Right kidney: Right kidney is normal in size. No hydronephrosis or nephrolithiasis. Miscellaneous: No free abdominal fluid. IMPRESSION: Distended gallbladder containing sludge with mild wall thickening , pericholecystic fluid, and positive sonographic Wharton's sign. Findings are concerning for acute cholecystitis. Increased hepatic echogenicity noted possibly related to hepatic steatosis but other sources of hepatocellular disease cannot be excluded. Recommend clinical correlation Approved by: Ashley Veras M.D. on 12/12/2023 at 16:20
[2023-12-12 16:00] LABS: Urine Volume 10mL (spun)
[2023-12-12 16:03] LABS: RBC Urine None Seen (0-5/HPF)
[2023-12-12 16:04] LABS: Amorphous Sediment Urine 2+; Bacteria Urine Occasional (0-1); Culture Indicated Urine Specimen Cultured; Mucus Urine 2+ (Negative); Squamous Epithelial Cell Urine None Seen (0-5/HPF); WBC Urine 0-1/HPF (0-5/HPF)
--- NOTE | 2023-12-12 16:46 | DI.MRI.S_ITS ---
PROCEDURE: MR ABDOMEN WO/W CON INDICATIONS: RUQ pain, sludge filled gall bladder TECHNIQUE: Coronal HASTE, axial 2D FLASH in- and [id number]; axial breath-hold T2 FSE with fat saturation from the hepatic dome to the iliac crests. Oblique coronal thin-slice and radial thick slab HASTE through the biliary system. Dynamic axial VIBE during administration of contrast. Post-contrast coronal VIBE or 2D FLASH with fat saturation from the hepatic dome to the iliac crests. Optional diffusion weighted imaging and ADC may be performed. COMPARISON: Abdominal ultrasound 12/12/2023. FINDINGS: Image quality: Diagnostic. Gallbladder: There is redemonstration of filling defects within the gallbladder consistent with sludge seen on same day prior ultrasound. There is gallbladder wall thickening and pericholecystic fluid. Biliary ducts: No biliary dilation. No filling defects within the common bile duct. Pancreas: No ductal dilation. OTHER: Lung bases: Unremarkable. Liver: No solid mass. Spleen: Size is within normal limits. Adrenal Glands: No adrenal nodules. Kidneys and Ureters: No hydronephrosis. No solid mass. No complex renal cystic lesion which requires follow up. Stomach and Bowel: Normal colonic caliber, without significant wall thickening. Peritoneum: No abnormal intraperitoneal fluid. No free air. Ventral Wall: No hernia. Abdominal Nodes: No retroperitoneal or mesenteric adenopathy by size criteria. Vessels: Aorta and inferior vena cava are normal in size. Bones: No aggressive osseous abnormality. IMPRESSION: Gallbladder filling defects consistent with sludge seen on same day abdominal ultrasound. Gallbladder wall thickening and pericholecystic fluid. Findings in the context of prior ultrasound likely reflect acute cholecystitis. No biliary ductal dilatation. No choledocholithiasis. Approved by: Ashley Veras M.D. on 12/12/2023 at 17:42
[2023-12-12] MEDS: ONDANSETRON 4 MG/2 ML INJ IV (17:35)
[2023-12-12] MEDS: KETOROLAC 30 MG/ML VIAL 15 MG IV (17:35)
[2023-12-12] MEDS: PIPERACILLIN/TAZO 4.5 GM in SODIUM CHLORIDE 0.9% 100 ML IV (17:36)
[2023-12-12 18:44] VITALS: BP 119/72; PULSE 85; O2SAT 97
[2023-12-12] MEDS: PIPERACILLIN/TAZO 3.375 GM in SODIUM CHLORIDE 0.9% 100 ML IV (19:44)
[2023-12-12 20:30] VITALS: BP 113/73; PULSE 74; RESP 20; TEMP 36.1; O2SAT 100
[2023-12-12] MEDS: SODIUM CHLORIDE 0.9% 1,000 ML 125 ML IV (20:30)
[2023-12-12 20:32] VITALS: BMI 31.2
--- NOTE | 2023-12-12 21:24 | PC.ADMIT ---
Addendum entered by Natalya Estrella R.N. 12/13/23 02:22: Complaining of 7/10 generalized pain + nausea; medicated with Dilaudid + zofran. Original Note: Carmen Lainez Dr Admission Note: The patient,Costa Ku,43 y/o, was given written information regarding hospital policies, unit procedures and contact persons. Patient's smoking status: Never smoker. Vital Signs - 8 hr 12/12/23 14:36 12/12/23 14:36 12/12/23 14:41 Temperature 97.8 F Pulse Rate 76 72 Respiratory Rate 16 Blood Pressure 128/76 128/78 Pulse Oximetry 100 100 Oxygen Delivery Method Room Air 12/12/23 18:44 12/12/23 20:45 Temperature Pulse Rate 85 Respiratory Rate Blood Pressure 119/72 Pulse Oximetry 97 Oxygen Delivery Method Room Air Room Air Patient admitted to room 218 from ER per wheelchair. States he came in due to upper abdominal pain that he has had for past 1 1/2 weeks which became worse today; no associated nausea but has had decreased appetite. Currently states abdominal twinges severity is 3/10 but only when taking a deep breath. Is alert and oriented. Breath sounds CTA with RA sat of 100%. HRR. Denies nausea and has no abdominal tenderness with palpation. BT present and abdomen is soft. Denies dysuria; instructed to use urinal to keep track of I&O while on IVF. Is independent with mobility. Fall risk score is low. NPO for impending surgery in a.m. so given toothettes with water to keep mouth moist. Oriented to call light and bed controls. Informed re: plan of care and had no questions at this time.
[2023-12-13] VITALS (18 sets, daily range): BP systolic 97–144; BP diastolic 59–93; PULSE 56–89; RESP 12–18; TEMP 36.1–36.9; O2SAT 94–100; BMI 31.2
--- NOTE | 2023-12-13 | PATH_ITS ---
[facility] Accession Number: [id number] No. of containers..01 Tissue . 01 Material submitted: . gallbladder - PARTIAL GALLBLADDER . 01 Diagnosis: GALLBLADDER, CHOLECYSTECTOMY: Acute on chronic and hemorrhagic cholecystitis, and with associated organizing fibrosis and fat necrosis. MRV 12/16/2023 1418 Local . 01 Electronically signed: . Akilah Noel MD, Pathologist NPI- [id number] . 01 Gross description: . Received in formalin with two patient identifiers and partial gallbladder, is a previously opened portion of gallbladder with presumed cautery artifact identified around the edges. and no cystic duct margin grossly identified. The serosa is congested, and the margins are inked blue. No calculi or bile is identified in the lumen, on the specimen, or in the container. The mucosa is brown and trabecular with yellow areas of discoloration and no polyps or lesions identified. The caballero are green to alarcon and range from 0.4 to 1.1 cm thick, with no distinct lesions grossly identified. 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 ([id number]) /MRV 12/15/2023 1241 Local . 01 Pathologist provided ICD-10: K81.1, K81.2 . 01 CPT . 624167 Specimen Comment: A courtesy copy of this report has been sent to [phone] Performed at: 01 [facility] [address] [place] [address], [place], [place] [id number] MD Stoney Mariano MD Phone: [phone]
[2023-12-13] MEDS: SODIUM CHLORIDE 0.9% FLUSH 10 ML IV (02:19)
[2023-12-13] MEDS: HYDROMORPHONE 0.5 MG INJ IV (02:19)
[2023-12-13] MEDS: ONDANSETRON 4 MG/2 ML INJ IV (02:19)
[2023-12-13] MEDS: PIPERACILLIN/TAZO 3.375 GM in SODIUM CHLORIDE 0.9% 100 ML IV ×3 (03:33→19:37)
[2023-12-13] MEDS: SODIUM CHLORIDE 0.9% 1,000 ML 125 ML IV ×2 (04:25→15:46)
[2023-12-13 05:21] LABS: Add Manual Diff / Slide Review NO; Basophils Absolute Auto 0 /uL (0-100); Basophils Percent Auto 0.4 % (0-2); Eosinophils Absolute Auto 0 /uL (0-450); Eosinophils Percent Auto 0.4 % (2-4); Hematocrit 39.4 % (41-53); Hemoglobin 13.8 g/dL (13.5-17.5); Lymphocytes Absolute Auto 1400 /uL (1100-4500); Lymphocytes Percent Auto 17.3 % (25-40); Mean Corpuscular Hemoglobin 30.5 PG (26-34); Mean Corpuscular Volume 87.3 fL (80-100); Monocytes Absolute Auto 500 /uL (0-900); Monocytes Percent Auto 6.5 % (3-14); Neutrophils Absolute Auto 6200 /uL (1500-7000); Neutrophils Percent Auto 75.4 % (50-75); Platelet Count 267 X10^3/uL (150-400); Red Blood Cell Count 4.51 X10^6/uL (4.5-5.9); Red Cell Distribution Width 13.4 % (11.6-14.8); White Blood Cell Count 8.2 X10^3/uL (4.5-11.0)
[2023-12-13 05:29] LABS: Alanine Aminotransferase 415 IU/L (<50); Albumin 3.7 g/dL (3.5-5.0); Albumin Globulin Ratio 1.1 (1.0-2.8); Alkaline Phosphatase 185 U/L (38-126); Aspartate Aminotransferase 342 IU/L (17-59); BUN Creatinine Ratio 12.4 (6-22); Bilirubin Total 4.6 mg/dL (0.2-1.3); Blood Urea Nitrogen 11 mg/dL (9-20); Calcium 8.7 mg/dL (8.4-10.2); Carbon Dioxide 26 mmol/L (22-32); Chloride 108 mmol/L (98-107); Estimated Glomerular Filt Rate > 60 mL/min (>60); Globulin 3.4 g/dL (1.7-4.1); Glucose 120 mg/dL (70-100); HEMOLYSIS < 15 (0-50); Sodium 139 mmol/L (137-145); Total Protein 7.1 g/dL (6.3-8.2)
--- NOTE | 2023-12-13 08:50 | PC.NURSE ---
Pt A&Ox4, VSS. Pt taken to surgery in bed at 0850.
--- NOTE | 2023-12-13 09:08 | P.HP_ITS ---
History of Present Illness History of Present Illness Date Patient Seen: 12/13/23 Time Patient Seen: 09:08 Chief complaint: Gallbladder sent from [facility] Narrative: 43-year-old man sent from outside facility for acute cholecystitis. He has had several days of upper abdominal pain and nausea. At admission to [facility] afebrile white blood cell count 8, total bilirubin 2.4 with mild transaminitis. Ultrasound demonstrates gallbladder wall thickening pericholecystic fluid and sludge within the gallbladder. An MR CP was obtained to rule out choledocholithiasis and there was no evidence of a common bile duct stone however total bilirubin today is now 4.6. Previous abdominal surgery includes appendectomy. [facility] Social History household members: spouse, family and children Smoking Status: Never smoker alcohol intake: never Meds Home Medications and Allergies Home Medications Medication Instructions Recorded Confirmed Type No Known Home Medications 12/12/23 12/12/23 History Allergies Allergy/AdvReac Type Severity Reaction Status Date / Time No Known Drug Allergies Allergy Verified 12/12/23 18:01 Exam Vital Signs (past 8 hours): - 12/13/23 09:01 Temperature 97.9 F Pulse Rate 80 Respiratory Rate 16 Blood Pressure 133/83 Pulse Oximetry 99 Oxygen Delivery Method Room Air Oxygen Delivery Method Room Air Oxygen Flow Rate 0 Narrative Exam Narrative: GENERAL: A well nourished, well developed adult, resting comfortably, in no acute distress. HEENT: Normocephalic, atraumatic. No scleral icterus CHEST: Rising symmetrically. No audible wheezes CARDIOVASCULAR: Warm and well perfused. Regular rate ABDOMEN: Tender right upper quadrant. EXTREMITIES: Normal tone and without edema. NEUROLOGIC: Moving all extremities spontaneously. No gross motor deficits. Objective Labs 12/13/23 05:05 12/13/23 05:05 Labs: Laboratory Results - last 24 hr 12/12/23 12/12/23 12/13/23 14:45 15:53 05:05 WBC 9.2 8.2 RBC 4.64 4.51 Hgb 14.3 13.8 Hct 40.7 L 39.4 L MCV 87.7 87.3 MCH 30.9 30.5 MCHC 35.2 35.0 RDW 13.3 13.4 Plt Count 290 267 Neut % (Auto) 79.8 H 75.4 H Lymph % (Auto) 13.7 L 17.3 L [place] % (Auto) 6.0 6.5 Eos % (Auto) 0.1 L 0.4 L Baso % (Auto) 0.4 0.4 Neut # (Auto) 7400 H 6200 Lymph # (Auto) 1300 1400 [place] # (Auto) 600 500 Eos # (Auto) 0 0 Baso # (Auto) 0 0 Sodium 138 139 Potassium 4.4 4.0 Chloride 105 108 H Carbon Dioxide 27 26 BUN 11 11 Creatinine 0.80 0.89 Estimated GFR > 60 > 60 BUN/Creatinine Ratio 13.8 12.4 Glucose 126 H 120 H Calcium 9.2 8.7 Total Bilirubin 2.8 H 4.6 H AST 299 H 342 H ALT 302 H 415 H Alkaline Phosphatase 170 H 185 H Total Protein 8.0 7.1 Albumin 4.2 3.7 Globulin 3.8 3.4 Albumin/Globulin Ratio 1.1 1.1 Lipase 68 Urine RBC None seen Urine WBC 0-1/hpf Ur Squamous Epith Cells None seen Amorphous Sediment 2+ Urine Bacteria Occasional (0-1) Urine Mucus 2+ H Ur Culture Indicated? Specimen cultured Vol Urine Centrifuged 10ml (spun) Assessment & Plan Assessment and plan (1) Acute cholecystitis: Status: Acute Assessment & Plan narrative: 43-year-old man with symptoms and radiographic findings consistentwith a acute cholecystitis. Total bilirubin 4.5 today with transaminitis MRCP evaluated demonstrates no common bile duct stone. We will proceed with laparoscopic cholecystectomy. Overview of the operation described. Operative risks including but not limited to infection, hemorrhage, damage to surrounding structures, need for further procedures specifically ERCP discussed. His questions have been answered he is in agreement with this plan. He provides his written and verbal consent to proceed.
[2023-12-13] MEDS: LACTATED RINGERS 1,000 ML 42 ML IV ×2 (09:13→11:12)
--- NOTE | 2023-12-13 09:16 | CM.DANOTE ---
Addendum entered by FINESSE Armstrong 12/13/23 10:04: From full charge bookkeeper, surgeon wants to keep pt overnight and dc him tomorrow. No anticipated CM needs. DIANE Original Note: Brief DCP Assessment Note Pt is a 43yo M here transferred from [facility] for acute cholecystitis. Lap david with Dr. Constantino on 12.13.23. PCP None listed Payer [facility] and self pay RN CHRONIC reviewed EMR. Per chart review, pt is an otherwise healthy/active/indep man from [place]. Spouse Tamara ([phone]) support at home. Per chart review, pt has been in intermittent abdominal pain for over a week and came to the ER when intensified. Per RN, pt in surg at 0850. Pt in surg when this RN CHRONIC attempted to meet with him for dcp assessment. pt Either will dc straight from PACU or will return to floor likely to dc later today. No obvious CM needs. Plan: anticipate home with spouse when stable. Anticipate dc today. No identified CM needs from chart review/RN report. CM team will follow as needed. FINESSE Armstrong Discharge Planning/Care Management CM Discharge Assessment Start: 12/13/23 09:15 Freq: Status: Active Protocol: Document 12/13/23 09:15 DIANE (Rec: 12/13/23 09:16 [email or web address]) Discharge Planning Assessment Assigned Fabrication Engineer Finesse Garduno DPOA/Assigned Designee Name [email or web address] Mcdonald Contact Information [phone] Advance Directives? No History Provided By Patient,Medical Record Prior Living Arrangements House Household Members spouse,family,children Type of transporation used prior to Drives own vehicle admit Independent with ADL's Yes Is patient alert and oriented? Yes Barriers to Discharge No Discharge Plan Home Referrals Initiated None needed Whiteboard Updated in Patient Room with No name and ext. # of Fabrication Engineer Comment pt in surg during attempted assessment Review Status In Process Next Review Type Continued Stay Review
[2023-12-13] MEDS: BUPIVACAINE 0.25% (PF) VIAL 30 ML INJ (09:40)
--- NOTE | 2023-12-13 09:49 | SUR.OPER ---
Supine on padded OR bed, head on pillow, safety belt at thigh, left arm padded and tucked at side. Right arm secured on padded arm board <90 degrees abduction. Legs uncrossed. Padded footboard in place. Tape over blanket to secure lower legs.
--- NOTE | 2023-12-13 11:10 | PM.OP.1 ---
Operative Date/Time/Diagnoses Date of procedure: 12/13/23 Time of procedure: 11:10 Pre-op diagnosis: Acute cholecystitis Post-op diagnosis: same Procedure & Clinicians Procedure: Subtotal laparoscopic cholecystectomy Same procedure as scheduled: Yes Indications: 43-year-old male with 1.5 weeks of upper abdominal pain presents to the emergency room found to have acute cholecystitis. Imaging demonstrates pericholecystic fluid, gallbladder wall thickening and laboratory studies are significant for total bilirubin of 2.5 and transaminitis. MRCP performed demonstrates no filling defects of the common bile duct and a repeat total bilirubin preoperatively is 4.5. He is taken to the operating room for cholecystectomy. Surgeon: Lion Constantino Click Yes if Unassisted: Yes Anesthesia Type: General Operative Notes Findings: Acute on chronic cholecystitis. Unable to visualize the distal 20% of the gallbladder. Specimen(s): other (Partial gallbladder) Estimated Blood Loss (mL): 100 Procedure in detail: Patient was brought to the operating room placed supine on the table. Bilateral lower extremity compression devices were applied. General anesthesia was induced and he was intubated with an endotracheal tube. He received 3.375 g of Zosyn prior to skin incision. He was then prepped and draped in sterile fashion and time-out was performed. An infraumbilical incision was made the abdomen was entered and pneumoperitoneum was established. Additional 5 mm working ports were placed in the right upper quadrant in general inspection of the abdomen was made. The gallbladder was extremely inflamed and firm. It was percutaneously aspirated to facilitate its manipulation. The inflammation of the gallbladder was such that even with maximal retraction and positioning of the table we were unable to visualize the bottom 20% or so of the gallbladder. Therefore we performed a subtotal cholecystectomy. The gallbladder was taken off of the gallbladder fossa using the LigaSure. We were able to safely remove approximately 80% of the gallbladder but the bottom 20%/remnant could not safely be removed. Two hundred nineteen Japanese Jesus drains were left 1 in the right pericolic gutter and the other within the gallbladder fossa. The umbilical incision was closed with [id number] Vicryl suture and the skin closed with Monocryl followed by the application of Dermabond. He emerged from anesthesia was transferred to recovery in stable condition. Complications: none Post-operative Condition: stable Disposition: Acute Care
--- NOTE | 2023-12-13 11:27 | SUR.PHASEI ---
Pt transferred to room 218 in bed by this RN. SBAR report to Crystal RN at bedside.
--- NOTE | 2023-12-13 14:20 | PC.NURSE ---
Addendum entered by Crystal Chin R.N. 12/13/23 19:33: Pt A&Ox4, VSS. Fresh dressing shows new drainage, serosanguinous, over lower 30% of dressing. No c/o pain, SHAY drains patent and draining. Addendum entered by Crystal Chin R.N. 12/13/23 18:39: Pt ambulated to bathroom with SBA, passing gas but no bowel movement as yet. General diet tolerated well. Inferior, lateral SHAY drain dressing saturated with serosanguinous fluid, small leak outside of tegaderm. Dressing reinforced with drain gauze and paper tape. No c/o pain. Addendum entered by Crystal Chin R.N. 12/13/23 14:24: Pt more alert and eating/drinking in moderation. Skin pinker, SBP 120s, VSS stable. No change in dressing status. Pt reported coughing without a pillow. Drains emptied (A 20mL, B90mL), drainage serosangiunous. U/O 600mL in urinal, dark and foamy. Original Note: Pt back from PACU at ~1130. Pt drowsy and pale but A&O, SBP 90s, VSS stable. Lower, lateral abd dressing pink but not saturated, upper, medial dressing CDI. SHAY drains emptied (35 in A, 5 in B), pt reoriented to room, fall precautions, and call light. Encouraged pt to use pillow over abdomen if coughing. Ice pack present.
[2023-12-14] VITALS (9 sets, daily range): BP systolic 110–133; BP diastolic 68–85; PULSE 62–76; RESP 16–19; TEMP 35.9–36.9; O2SAT 95–100
[2023-12-14] MEDS: SODIUM CHLORIDE 0.9% 1,000 ML 125 ML IV (00:09)
[2023-12-14] MEDS: ACETAMINOPHEN 325 MG TABLET 650 MG PO (00:36)
[2023-12-14] MEDS: PIPERACILLIN/TAZO 3.375 GM in SODIUM CHLORIDE 0.9% 100 ML IV ×3 (03:16→20:07)
[2023-12-14 05:33] LABS: Add Manual Diff / Slide Review NO; Basophils Absolute Auto 0 /uL (0-100); Basophils Percent Auto 0.1 % (0-2); Eosinophils Absolute Auto 0 /uL (0-450); Hemoglobin 12.4 g/dL (13.5-17.5); Lymphocytes Absolute Auto 1500 /uL (1100-4500); Lymphocytes Percent Auto 11.6 % (25-40); Mean Corpuscular HGB Conc 34.5 % (30-36); Mean Corpuscular Hemoglobin 30.9 PG (26-34); Mean Corpuscular Volume 89.5 fL (80-100); Monocytes Absolute Auto 600 /uL (0-900); Monocytes Percent Auto 4.4 % (3-14); Neutrophils Absolute Auto 10900 /uL (1500-7000); Neutrophils Percent Auto 83.9 % (50-75); Platelet Count 248 X10^3/uL (150-400); Red Blood Cell Count 4.02 X10^6/uL (4.5-5.9); Red Cell Distribution Width 13.3 % (11.6-14.8)
[2023-12-14 05:40] LABS: Alanine Aminotransferase 475 IU/L (<50); Albumin 3.3 g/dL (3.5-5.0); Alkaline Phosphatase 187 U/L (38-126); Aspartate Aminotransferase 338 IU/L (17-59); BUN Creatinine Ratio 13.4 (6-22); Bilirubin Total 2.9 mg/dL (0.2-1.3); Blood Urea Nitrogen 11 mg/dL (9-20); Calcium 8.1 mg/dL (8.4-10.2); Carbon Dioxide 25 mmol/L (22-32); Chloride 109 mmol/L (98-107); Estimated Glomerular Filt Rate > 60 mL/min (>60); Globulin 3.4 g/dL (1.7-4.1); Glucose 122 mg/dL (70-100); HEMOLYSIS < 15 (0-50); Potassium 3.8 mmol/L (3.4-5.1); Sodium 138 mmol/L (137-145); Total Protein 6.7 g/dL (6.3-8.2)
[2023-12-14] MEDS: ENOXAPARIN 40 MG/0.4 ML SYRINGE SUBCUT (08:35)
--- NOTE | 2023-12-14 09:33 | CM.DPNOTE ---
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 Per RN, Pt doing well. Drains continue to have a lot of output. No obvious CM needs. Per surgeon, dc tomorrow due to another day of IV abx and wanting to monitor tubes. No CM needs. Plan: dc tomorrow home with family. no identified CM needs. CM team will continue to monitor for further dcp needs. FINESSE Armstrong
--- NOTE | 2023-12-14 09:42 | PM.PNPO.1 ---
Subjective Subjective Date Patient Seen: 12/14/23 Time Patient Seen: 09:42 Interval history: Postoperative day 1 status post laparoscopic subtotal cholecystectomy for acute cholecystitis. Remains hospitalized for IV antibiotic therapy and drain management. Pain improved from yesterday. Minimal appetite. Exam Vital Signs (past 8 hours): - 12/14/23 04:00 12/14/23 08:00 Temperature 98.5 F 97.3 F L Pulse Rate 72 62 Respiratory Rate 18 18 Blood Pressure 133/85 116/71 Pulse Oximetry 98 98 Oxygen Flow Rate 0 Oxygen Delivery Method Room Air Oxygen Flow Rate 0 Narrative Exam Narrative: General adult man alert oriented uncomfortable Abdomen soft appropriately tender to palpation. Two abdominal drains both bile tinged. Objective Labs 12/14/23 04:35 12/14/23 04:35 Labs: Laboratory Results - last 24 hr 12/14/23 04:35 WBC 13.0 H D RBC 4.02 L Hgb 12.4 L Hct 36.0 L MCV 89.5 MCH 30.9 MCHC 34.5 RDW 13.3 Plt Count 248 Neut % (Auto) 83.9 H Lymph % (Auto) 11.6 L [place] % (Auto) 4.4 Eos % (Auto) 0.0 L Baso % (Auto) 0.1 Neut # (Auto) 85808 H Lymph # (Auto) 1500 [place] # (Auto) 600 Eos # (Auto) 0 Baso # (Auto) 0 Sodium 138 Potassium 3.8 Chloride 109 H Carbon Dioxide 25 BUN 11 Creatinine 0.82 Estimated GFR > 60 BUN/Creatinine Ratio 13.4 Glucose 122 H Calcium 8.1 L Total Bilirubin 2.9 H AST 338 H ALT 475 H Alkaline Phosphatase 187 H Total Protein 6.7 Albumin 3.3 L Globulin 3.4 Albumin/Globulin Ratio 1.0 PFSH Social History household members: spouse, family and children Smoking Status: Never smoker alcohol intake: never Assessment & Plan Post-op Postoperative Procedures: Procedures Operation Date: 12/13/23 09:00 Actual Procedure Side Surgeon p Laparoscopic Subtotal Cholecystectomy Not Applicable Lion Constantino MD Postoperative status narrative: 43-year-old man postoperative day 1 status post laparoscopic subtotal cholecystectomy for acute cholecystitis. Severe inflammatory changes the critical view of safety could not be visualized and therefore he underwent a subtotal cholecystectomy with drain placement. He remains hospitalized for IV antibiotic therapy and drain management. -diet as tolerated -DC IV fluids -continue Zosyn -drain teaching. Anticipate discharge home with drains in place. -SCDs and Lovenox
[2023-12-15] VITALS: BP 115/69; PULSE 74; RESP 18; TEMP 36.3; O2SAT 96
[2023-12-15] MEDS: PIPERACILLIN/TAZO 3.375 GM in SODIUM CHLORIDE 0.9% 100 ML IV (03:34)
[2023-12-15 04:00] VITALS: BP 108/68; PULSE 69; RESP 18; TEMP 35.9; O2SAT 95
[2023-12-15 05:05] LABS: Alanine Aminotransferase 439 IU/L (<50); Albumin 3.5 g/dL (3.5-5.0); Alkaline Phosphatase 183 U/L (38-126); Aspartate Aminotransferase 194 IU/L (17-59); BUN Creatinine Ratio 12.4 (6-22); Bilirubin Total 1.9 mg/dL (0.2-1.3); Blood Urea Nitrogen 11 mg/dL (9-20); Calcium 8.3 mg/dL (8.4-10.2); Carbon Dioxide 24 mmol/L (22-32); Chloride 108 mmol/L (98-107); Estimated Glomerular Filt Rate > 60 mL/min (>60); Globulin 3.5 g/dL (1.7-4.1); Glucose 95 mg/dL (70-100); HEMOLYSIS < 15 (0-50); Potassium 3.6 mmol/L (3.4-5.1); Sodium 139 mmol/L (137-145)
[2023-12-15 05:20] LABS: Add Manual Diff / Slide Review NO; Basophils Absolute Auto 100 /uL (0-100); Basophils Percent Auto 0.8 % (0-2); Eosinophils Absolute Auto 100 /uL (0-450); Eosinophils Percent Auto 1.2 % (2-4); Hematocrit 36.3 % (41-53); Hemoglobin 12.7 g/dL (13.5-17.5); Lymphocytes Absolute Auto 1900 /uL (1100-4500); Lymphocytes Percent Auto 24.8 % (25-40); Mean Corpuscular HGB Conc 35.1 % (30-36); Mean Corpuscular Hemoglobin 31.5 PG (26-34); Mean Corpuscular Volume 89.8 fL (80-100); Monocytes Absolute Auto 500 /uL (0-900); Monocytes Percent Auto 6.2 % (3-14); Neutrophils Absolute Auto 5200 /uL (1500-7000); Platelet Count 265 X10^3/uL (150-400); Red Blood Cell Count 4.04 X10^6/uL (4.5-5.9); Red Cell Distribution Width 13.5 % (11.6-14.8); White Blood Cell Count 7.7 X10^3/uL (4.5-11.0)
[2023-12-15 06:00] VITALS: O2SAT 95
[2023-12-15 08:00] VITALS: BP 115/77; PULSE 72; RESP 16; TEMP 35.8; O2SAT 99
--- NOTE | 2023-12-15 10:22 | PC.NURSE ---
Pt is dressed and ready for discharge home with family member (Uncle). IV has been removed. Dressing has been changed. Pt has been taught drain management and has been given an instructional handout, reviewed d/c meds, time of last dose, reviewed stroke education, reviewed s/s of infection, reminded Pt not to exceed 3000mg of acetaminophen in 24 hours, and to drink plenty of fluids to prevent constipation or dehydration. Pt to follow up on Thursday for drain removal. Discussed showering and wound care. Pt denied further questions and will call when his family member arrives to drive him home.
--- NOTE | 2023-12-15 11:10 | CM.DPNOTE ---
DC Note Discharge home today w/spouse to assist as needed, close outpatient follow up recommended. No needs identified from this CM team. JW
--- NOTE | 2023-12-15 14:35 | P.DS_ITS ---
History of Present Illness History of Present Illness Chief complaint: Gallbladder sent from [facility] Narrative: 43-year-old man sent from outside facility for acute cholecystitis. He has had several days of upper abdominal pain and nausea. At admission to [facility] afebrile white blood cell count 8, total bilirubin 2.4 with mild transaminitis. Ultrasound demonstrates gallbladder wall thickening pericholecystic fluid and sludge within the gallbladder. An MR CP was obtained to rule out choledocholithiasis and there was no evidence of a common bile duct stone however total bilirubin today is now 4.6. Previous abdominal surgery includes appendectomy. Discharge Providers Provider Date of admission: 12/13/23 12:04 Discharge Date: 12/15/23 Discharge provider: Lion Constantino MD Summary Hospital Course Discharge Diagnosis: Acute cholecystitis Hospital Course: Patient was taken to the operating room December 13, 2023 and underwent a subtotal cholecystectomy with drain placement. He had severe inflammatory changes around the infundibulum of the gallbladder and the critical view of safety could not be established. Postoperatively he was maintained on antibiotic therapy and showed improvement. At the time of discharge his total bilirubin has decreased from high of 4.6-1.9 today he is without leukocytosis now. He is afebrile tolerating a diet ambulatory in his received drain teaching. He will follow up with the surgical clinic later this week for drain evaluation. Was explained to him that should he continued to have bilious output then he would need an outpatient ERCP. Exam Vital Signs (past 8 hours): - 12/15/23 07:42 12/15/23 08:00 Temperature 96.4 F L Pulse Rate 72 Respiratory Rate 16 Blood Pressure 115/77 Pulse Oximetry 99 Oxygen Delivery Method Room Air Oxygen Flow Rate 0 0 Oxygen Delivery Method Room Air Oxygen Flow Rate 0 Narrative Exam Narrative: General adult man alert oriented no acute distress Abdomen soft appropriately tender to palpation. Surgical drains serosanguineous with bile staining Objective Labs 12/15/23 04:40 12/15/23 04:40 Labs: Laboratory Results - last 24 hr 12/15/23 04:40 WBC 7.7 RBC 4.04 L Hgb 12.7 L Hct 36.3 L MCV 89.8 MCH 31.5 MCHC 35.1 RDW 13.5 Plt Count 265 Neut % (Auto) 67.0 Lymph % (Auto) 24.8 L [place] % (Auto) 6.2 Eos % (Auto) 1.2 L Baso % (Auto) 0.8 Neut # (Auto) 5200 Lymph # (Auto) 1900 [place] # (Auto) 500 Eos # (Auto) 100 Baso # (Auto) 100 Sodium 139 Potassium 3.6 Chloride 108 H Carbon Dioxide 24 BUN 11 Creatinine 0.89 Estimated GFR > 60 BUN/Creatinine Ratio 12.4 Glucose 95 Calcium 8.3 L Total Bilirubin 1.9 H AST 194 H ALT 439 H Alkaline Phosphatase 183 H Total Protein 7.0 Albumin 3.5 Globulin 3.5 Albumin/Globulin Ratio 1.0 PFSH Social History household members: spouse, family and children Smoking Status: Never smoker alcohol intake: never Discharge Plan Discharge Plan Patient Disposition: Home Provider Discharge Comment: Drains to suction. Empty drained as instructed May shower with drains in place if covered Follow up with surgical clinic Thursday for drain evaluation and removal No lifting greater than 20 lb for the next 4 weeks Discharge orders & Medications Prescriptions: New ibuprofen 200 mg tablet 400 mg PO Q6H Qty: 60 0RF acetaminophen [Tylenol] 325 mg capsule 650 mg PO QID PRN (Reason: pain) Qty: 60 0RF levofloxacin 500 mg tablet 500 mg PO DAILY Qty: 5 0RF Follow up/Referrals: Lion Constantino MD [Physician] - 12/26/23 11:00 am (appt:12/17 @ 11:[address] Constantino ) Diet/Activity/Treatments Diet: Low-fat Skin/Wound/Dressing Care Report to your healthcare provider any signs of infection, such as:: chills, fever, increased pain, unusual drainage and unusual redness Visit Report/Discharge Packet Instructions: DI for Pankaj-Abraham Drains, How to Use and Care for Your Pankaj-Abraham Drain, Levofloxacin, DI for Laparoscopic Cholecystectomy, [facility]: Wound Care Stand Alone Forms: Patient Portal/API, Stroke Signs & Symptoms
== END 2023-12-15 10:53 | disposition home or self-care (01) | DRG 419 ==
LOC: ED 19:21 → AC 19:24
PROVIDERS: Physician Assistant Medical; Admitting Provider Surgery; Emergency Provider Emergency Medicine; Referring Provider Emergency Medicine; Visit Provider Surgery
PROC: 0FT44ZZ Resection of Gallbladder, Percutaneous Endoscopic Approach (ICD-10-PCS; CPT 47562; principal; 2023-12-13 09:00)
DX: K81.2 Acute cholecystitis with chronic cholecystitis (principal); K82.A1 Gangrene of gallbladder in cholecystitis
CPT/HCPCS: 36415; 47562; 74183; 76705; 80053; 81003; 81015; 83690; 85025; 87086; 93005; 93010; 96365; 96375; 99222; 99284; 99285; G0378; A9579; J1100; J1170; J1650; J1885; J2405; J2543; J2704; J3010